=== PATIENT | male | born 1945 | race Asian ===

== ENCOUNTER 2021-08-17 15:43 | Emergency (ER) | payer OTHER ==
[~2021-08-17] VITALS: Ht 177.8 cm; Wt 66.2 kg
[2021-08-17 15:43] VITALS: BP 162/77; TEMP 97.2
[2021-08-17 16:04] LABS: PLATELET COUNT 301 K/uL (142-355)
[2021-08-17 16:13] LABS: POTASSIUM 4.3 mmol/L (3.6-5.2)
[2021-08-18] MEDS ORDERED: AMLODIPINE BESYLATE PO (08:12)
[2021-08-18] MEDS ORDERED: PRINIVIL10 MG PO (08:13)
[2021-08-18] MEDS ORDERED: DONEPEZIL HYDRO10 MG PO (08:13)
[2021-08-18] MEDS ORDERED: MEMANTINE HYDRO10 MG PO (08:14)
[2021-08-18] MEDS ORDERED: METFORMIN HYD1000 MG PO (08:15)
[2021-08-18] MEDS ORDERED: ROSUVASTATIN CA20 MG PO (08:18)
[2021-08-18] MEDS ORDERED: INSULIN LI100 UNIT/M SC (08:20)
[2021-08-18] MEDS ORDERED: TRAZODONE HYDRO50 MG PO (08:22)
[2021-08-18] MEDS ORDERED: HUMALOG KW100 UNIT/M SC (08:27)
== END 2021-08-17 17:02 | disposition other institution (70) ==
LOC: ED 15:43
PROVIDERS: Emergency Medicine Emergency Medical Services
DX: G30.9 Alzheimer's disease, unspecified (principal); F02.81 Dementia in other diseases classified elsewhere, unspecified severity, with behavioral disturbance; Z11.52 Encounter for screening for COVID-19; Z04.6 Encounter for general psychiatric examination, requested by authority
CPT/HCPCS: 80053; 85027; 87635; 93005; 99283; U0003

== ENCOUNTER 2021-08-23 11:06 | Inpatient (IN) | payer OTHER ==
[~2021-08-23] VITALS: Ht 177.8 cm; Wt 67.3 kg
[2021-08-23] VITALS (7 sets, daily range): BP systolic 127–184; BP diastolic 60–90; TEMP 99.1–99.2; Ht 177.8 cm; Wt 67.3 kg
[~2021-08-23 11:06] MED LIST: AMLODIPINE BESYLATE PO; DONEPEZIL HYDRO10 MG PO; HUMALOG KW100 UNIT/M SC; INSULIN LI100 UNIT/M SC; MEMANTINE HYDRO10 MG PO; METFORMIN HYD1000 MG PO; PRINIVIL10 MG PO; ROSUVASTATIN CA20 MG PO; TRAZODONE HYDRO50 MG PO
[2021-08-23 12:32] LABS: PLATELET COUNT 312 K/uL (142-355)
[2021-08-23 12:42] LABS: POTASSIUM 3.7 mmol/L (3.6-5.2)
[2021-08-24] VITALS (24 sets, daily range): BP systolic 106–173; BP diastolic 54–91; TEMP 98.1–99.9
[2021-08-24 05:37] LABS: PLATELET COUNT 270 K/uL (142-355)
[2021-08-24 05:56] LABS: POTASSIUM 3.5 mmol/L (3.6-5.2)
[2021-08-25] VITALS (26 sets, daily range): BP systolic 106–173; BP diastolic 54–91; TEMP 98–99.9
[2021-08-25 05:55] LABS: PLATELET COUNT 307 K/uL (142-355)
[2021-08-25 06:06] LABS: POTASSIUM 3.4 mmol/L (3.6-5.2)
[2021-08-26] VITALS (19 sets, daily range): BP systolic 103–165; BP diastolic 46–89; TEMP 98.4–99.2
[2021-08-26 04:40] LABS: PLATELET COUNT 277 K/uL (142-355)
[2021-08-26 04:50] LABS: POTASSIUM 3.4 mmol/L (3.6-5.2)
[2021-08-27] VITALS (8 sets, daily range): BP systolic 120–152; BP diastolic 58–79; TEMP 97.6–99.6
[2021-08-27 05:09] LABS: POTASSIUM 3.9 mmol/L (3.6-5.2)
[2021-08-27 06:53] LABS: PLATELET COUNT 334 K/uL (142-355)
[2021-08-28 04:21] VITALS: BP 167/83; TEMP 99.2
[2021-08-28 04:51] LABS: PLATELET COUNT 355 K/uL (142-355)
[2021-08-28 08:00] VITALS: BP 164/104; TEMP 97.9
[2021-08-28 12:00] VITALS: BP 132/63; TEMP 98.1
[2021-08-28 16:13] VITALS: BP 165/94; TEMP 98.8
[2021-08-28 20:00] VITALS: BP 145/81; TEMP 98.7
[2021-08-29 00:07] VITALS: BP 149/77; TEMP 99.6
[2021-08-29 04:00] VITALS: BP 153/82; TEMP 99.1
[2021-08-29 12:00] VITALS: BP 145/85; TEMP 98.7
[2021-08-29 16:00] VITALS: BP 136/76; TEMP 98.7
[2021-08-29 20:00] VITALS: BP 157/94; TEMP 99.4
[2021-08-30 00:07] VITALS: BP 163/82; TEMP 98.8
[2021-08-30 04:00] VITALS: BP 161/88; TEMP 99
[2021-08-30 08:00] VITALS: BP 161/83; TEMP 97.9
[2021-08-30 10:30] LABS: PLATELET COUNT 410 K/uL (142-355)
[2021-08-30 10:35] LABS: POTASSIUM 3.6 mmol/L (3.6-5.2)
[2021-08-30 12:00] VITALS: BP 148/82; TEMP 98.8
[2021-08-30 16:00] VITALS: BP 124/66; TEMP 98.8
[2021-08-30 20:00] VITALS: BP 164/96; TEMP 99.5
[2021-08-31] VITALS: BP 157/88; TEMP 98.9
[2021-08-31 04:00] VITALS: BP 166/80; TEMP 99
[2021-08-31 05:30] LABS: PLATELET COUNT 353 K/uL (142-355)
[2021-08-31 08:00] VITALS: BP 190/98; TEMP 97.9
[2021-08-31] MEDS ORDERED: LACTSYP31 PO (10:49)
[2021-08-31] MEDS ORDERED: MIRALAX17 GM PO (10:50)
[2021-08-31 11:16] LABS: POTASSIUM 3.5 mmol/L (3.6-5.2)
== END 2021-08-31 12:07 | disposition other institution (70) | DRG 389 ==
LOC: ICU 11:06 → MED/SURG 08-27 09:45
PROVIDERS: Internal Medicine; ADMIT Internal Medicine Endocrinology, Diabetes & Metabolism; ATTEND Internal Medicine Endocrinology, Diabetes & Metabolism
DX: K56.7 Ileus, unspecified (principal); N17.8 Other acute kidney failure; F02.81 Dementia in other diseases classified elsewhere, unspecified severity, with behavioral disturbance; F20.81 Schizophreniform disorder; K59.09 Other constipation; E87.6 Hypokalemia; E78.49 Other hyperlipidemia; D72.828 Other elevated white blood cell count; I10 Essential (primary) hypertension; E11.9 Type 2 diabetes mellitus without complications; G30.8 Other Alzheimer's disease
CPT/HCPCS: 36415; 80048; 80053; 83735; 85027; J0360; J0744; J1644; J1815; J2060; J3480; J3490

== ENCOUNTER 2021-09-23 03:02 | Emergency (ER) | payer OTHER ==
[~2021-09-23] VITALS: Ht 177.8 cm; Wt 64.9 kg
[~2021-09-23 03:02] MED LIST changes: +ESCI10TA PO; +INSU300I SC; +LACTSYP31 PO; +MAGN400T4 PO; +METOCLOPRAM5 MG PO; +MIRALAX17 GM PO; +SCOP1.5D TOP
[2021-09-23 04:13] LABS: PARTIAL THROMBOPLASTIN TIME 43.4 SECONDS (24.5-33.6)
[2021-09-23 04:15] LABS: POTASSIUM 2.2 mmol/L (3.6-5.2)
[2021-09-23 04:22] LABS: PLATELET COUNT 71 K/uL (142-355)
[2021-09-23 07:10] VITALS: BP 92/30; TEMP 96
== END 2021-09-23 07:10 | disposition short-term general hospital (02) ==
LOC: ED 03:02
PROVIDERS: Hospitalist
PROC: 5A12012 Performance of Cardiac Output, Single, Manual (ICD-10-PCS; principal; 2021-09-23)
PROC: 0T9B70Z Drainage of Bladder with Drainage Device, Via Natural or Artificial Opening (ICD-10-PCS; 2021-09-23)
PROC: 0BH17EZ Insertion of Endotracheal Airway into Trachea, Via Natural or Artificial Opening (ICD-10-PCS; 2021-09-23)
PROC: 5A1935Z Respiratory Ventilation, Less than 24 Consecutive Hours (ICD-10-PCS; 2021-09-23)
PROC: 06HM33Z Insertion of Infusion Device into Right Femoral Vein, Percutaneous Approach (ICD-10-PCS; 2021-09-23)
PROC: 0D9670Z Drainage of Stomach with Drainage Device, Via Natural or Artificial Opening (ICD-10-PCS; 2021-09-23)
DX: I46.9 Cardiac arrest, cause unspecified (principal); A41.9 Sepsis, unspecified organism; N17.9 Acute kidney failure, unspecified
CPT/HCPCS: 36415; 36558; 36600; 51702; 80053; 81000; 82550; 82805; 82948; 83605; 83880; 84484; 85007; 85027; 85610; 85730; 87040; 87077; 87086; 87088; 87186; 87205; 92950; 93005; 94002; 94003; 96360; 96361; 96365; 96366; 96375; 96376; 99285; C1768; J1642; J2250; J2543; J3490